=== PATIENT | female | born 1955 | race Caucasian/White ===

== ENCOUNTER 2023-07-29 15:02 | Emergency (ER) | payer OTHER, SELFPAY ==
[2023-07-29 15:07] VITALS: BP 157/107
[2023-07-29 16:40] VITALS: BP 153/94
[2023-07-29 16:56] LABS: % Basophils 0.5 % (0-2); % Eosinophils 2.3 % (0-6); % Immature Granulocytes 0.3 % (0-0.5); % Monocytes 8.2 % (1.7-9.3); % Neutrophils 55.7 % (42.2-75.2); Absolute Eosinophils 0.2 10^3/uL (0-0.7); Absolute Lymphocytes 2.5 10^3/uL (1.2-3.4); Absolute Monocytes 0.6 10^3/uL (0.1-0.6); Absolute Neutrophils 4.1 10^3/uL (1.4-6.5); Hematocrit 39.1 % (37.0-47.0); Hemoglobin 13.5 g/dL (12.0-16.0); Mean Corp Hgb Conc. 34.5 g/dL (33.0-37.0); Mean Corpuscular Hgb 30.8 pg (27.0-31.0); Mean Corpuscular Volume 89.1 fL (81.0-99.0); Mean Platelet Volume 9.3 fL (7.4-10.4); Nucleated Red Blood Cells % 0 %; Platelet Count 231 10^3/uL (130-400); Red Blood Cell Count 4.39 10^6/uL (4.20-5.40); Red Cell Dist. Width 13.5 % (11.5-14.5); White Blood Cell Count 7.4 10^3/uL (4.8-10.8)
[2023-07-29 17:00] VITALS: BP 145/73
[2023-07-29 17:08] LABS: ALT (SGPT) 17 U/L (0-35); AST (SGOT) 23 U/L (14-36); Albumin 4.1 g/dl (3.5-5.0); Alkaline Phosphatase 100 U/L (38-126); Blood Urea Nitrogen 19 mg/dl (7-17); Calcium 9.2 mg/dl (8.4-10.2); Carbon Dioxide 28 mmol/L (22-30); Chloride 102 mmol/L (98-107); Glucose 98 mg/dl (70-99); Potassium 4.8 mmol/L (3.5-5.1); Sodium 138 mmol/L (135-145); Total Bilirubin 0.4 mg/dl (0.2-1.3); Total Protein 6.9 g/dl (6.3-8.2); eGFR > 60.00
[2023-07-29 17:19] LABS: Troponin I < 0.012 ng/ml
--- NOTE | 2023-07-29 17:36 | ED.GENMED ---
History of Present Illness
General
Chief Complaint: Fatigue
Source: patient
Exam Limitations: none
Time Seen by Provider: 07/29/23 16:51
Travel History
Have you had any contact with someone who has COVID-19?: No
Do you have any symptoms of coronavirus? Fever > 100 degrees, chills, cough, shortness of breath, sore throat, loss of taste or smell, muscle aches, or headache?: No
History of Present Illness
History of Present Illness:
Patient is 68-year-old female presents with weird symptoms of feeling sad internally with throat tightness nausea and epigastric discomfort. This started earlier this morning associated with fatigue as well. Symptoms persisted throughout the day.
She states at the time my exam she has nearly resolved symptom
Past History
Past History
ED Past Medical History: None
ED Past Surgical History: None
Social History
Tobacco: Non-smoker
Alcohol: None
Drug: None
Living: with family
Phy Exam
Physical Exam
Physical Exam:
General: Well-appearing female no acute respiratory distress
HEENT: Normocephalic atraumatic
Heart: Regular rate and rhythm no murmurs
Lungs: Clear no wheeze or rales
Abdomen soft nontender nondistended no guarding rebound normal bowel sounds
Ext: no cyanosis
Course
Orders/Labs/Results
Orders:
Orders
07/29/23
Electrocardiogram (*1) Stat
Comment: DONE EMR
07/29/23 15:11
Electrocardiogram (*1) Urgent
Reason for Study: Other
Other Reason for Exam: weakness, fatigue
07/29/23 15:12
EKG- Treatment ONCE
07/29/23 16:47
Complete Blood Count/With Diff Urgent
Comprehensive Metabolic Panel Urgent
Troponin I Urgent
07/29/23 18:22
Troponin I Urgent
Abnormal Lab Results
07/29/23
16:47
BUN 19 H mg/dl
(7-17)
07/29/23 16:47
07/29/23 16:47
Vital Signs
Initial and Last Documented VS:
Initial Vital Signs
Temp Pulse Resp BP Pulse Ox
98.4 F 86 18 157/107 96
07/29/23 15:07 07/29/23 15:07 07/29/23 15:07 07/29/23 15:07 07/29/23 15:07
Last Documented Vital Signs
Temp Pulse Resp BP Pulse Ox
98.4 F 64 19 135/96 94
07/29/23 15:07 07/29/23 19:00 07/29/23 19:00 07/29/23 19:00 07/29/23 18:30
MDM/Problems Addressed
Differential Diagnosis Includes:
Throat discomfort epigastric discomfort fatigue. Consider viral illness versus cardiac related pathology. Symptoms are resolved do not suspect dissection or PE
*Critical Care Note
Total Time (30-74mins, 75-104mins- exclusive of procedures): Not Applicable
Update Note
Update Note:
Initial and repeat troponins both undetectable. Patient has no symptoms. Etiology of patient's symptoms somewhat unclear patient did have throat tightness and feeling of anxiety. Question cardiac related symptoms versus anxiety. Stable for
discharge cardiac follow up.
ED Attending Note
-
Portions of this chart may have been created with voice recognition software.� Occasional wrong word or��sound alike� substitutions may have occurred due to the inherent limitations of voice recognition software.
Discharge Plan
Departure
Patient Disposition: Home (Routine Discharge)
Date of Disposition: 07/29/23
Time of Disposition: 19:42
Patient with high blood pressure during this ER visit?: No
Discharge Problem:
Fatigue
Instructions: Chest Pain CBC Follow Up
Prescriptions:
No Action
escitalopram oxalate 10 MG tablet
10 mg PO DAILY
Referrals:
Shona Randolph MD [Family Provider] -
Activity Restrictions/Additional Instructions:
Please return if worsening symptoms otherwise follow-up with your family doctor and/or cardiology.
Interventions
Interventions:
*Risk Screen - Suicide Last Done: 07/29/23 15:07
*General Assessment Last Done: 07/29/23 15:07
*Neglect/Abuse Screening Last Done: 07/29/23 15:07
ED- Fall Risk Assessment Last Done: 07/29/23 18:32
*ED COVID-19 Vaccine History Last Done: 07/29/23 18:32
*Nursing Disposition Last Done: 07/29/23 19:47
Discharge Date and Time
Discharge Date/Time: 07/29/23 19:47
Print Language: KISWAHILI
[2023-07-29 18:00] VITALS: BP 146/83
[2023-07-29 18:59] LABS: Troponin I < 0.012 ng/ml
[2023-07-29 19:00] VITALS: BP 135/96
== END 2023-07-29 19:47 | disposition home or self-care (01) ==
LOC: EMR 15:02
PROVIDERS: Physician Assistant; EMERGENCY PHYSICIAN Emergency Medicine; FAMILY PHYSICIAN Family Medicine
DX: R53.83 Other fatigue (principal)
CPT/HCPCS: 99284; 80053; 84484; 85025; 93005

== ENCOUNTER → 2023-08-16 14:09 | Outpatient (REF) | payer OTHER, SELFPAY | LOC: RCS 14:09 | PROVIDERS: ATTENDING PHYSICIAN Internal Medicine Cardiovascular Disease; FAMILY PHYSICIAN Family Medicine | DX: R07.0 Pain in throat (principal); E78.2 Mixed hyperlipidemia | CPT/HCPCS: 93017; 93350 ==

== ENCOUNTER → 2023-09-03 13:41 | Outpatient (REF) | payer OTHER, SELFPAY | LOC: RCS 13:41 | PROVIDERS: ATTENDING PHYSICIAN Internal Medicine Cardiovascular Disease; FAMILY PHYSICIAN Family Medicine | DX: R07.0 Pain in throat (principal); E78.2 Mixed hyperlipidemia | CPT/HCPCS: 93306 ==

== ENCOUNTER → 2023-09-20 11:42 | Outpatient (REF) | payer OTHER, SELFPAY | LOC: RAD 11:42 | PROVIDERS: ATTENDING PHYSICIAN Physician Assistant | DX: M25.561 Pain in right knee (principal); T14.90XA Injury, unspecified, initial encounter; M79.604 Pain in right leg; M79.89 Other specified soft tissue disorders | CPT/HCPCS: 73564; 73590; 93971 ==

== ENCOUNTER → 2023-10-08 14:51 | Outpatient (REF) | payer OTHER, SELFPAY | LOC: WDC 14:51 | PROVIDERS: ATTENDING PHYSICIAN Family Medicine; FAMILY PHYSICIAN Family Medicine | DX: R22.1 Localized swelling, mass and lump, neck (principal); Z12.31 Encounter for screening mammogram for malignant neoplasm of breast | CPT/HCPCS: 76536; 77063; 77067 ==

== ENCOUNTER → 2023-11-29 17:16 | Outpatient (REF) | payer OTHER, SELFPAY | LOC: RAD 17:16 | PROVIDERS: ATTENDING PHYSICIAN Physician Assistant | DX: N95.0 Postmenopausal bleeding (principal) | CPT/HCPCS: 76830 ==

== ENCOUNTER 2024-02-18 06:13 | Day surgery (SDC) | payer OTHER, SELFPAY ==
[2024-02-12 12:17] VITALS: BMI 39.1
--- NOTE | 2024-02-17 22:39 | W.CON.GYNONC ---
Chief Complaint
-
endometrial cancer
History of Present Illness
68�year�old�white�female�G3�P2�0�1�2�menopausal�since�age�53�who�started�spotting�in�late�summer.�Her�family�physician�ordered
an�ultrasound�which�showed�thickening�of�the�endometrial�lining.�Ultrasound�done�at[facility]�shows�uterus�retroverted,
7.3�cm,�there�is�a�cyst�in�central�uterus�measuring�2.6�cm,�evaluation�of�endometrium�is�difficult�but�appears�to�measure�about�15
mm�right�ovary�is�1.4�cm,�left�ovary�is�not�identified�she�was�seen�and�evaluated�by�Dr.�Angela�and�gynecology.�[facility] recommended�to�undergo�D&C�for�evaluation.�Procedure�was�performed�November�,�pathology�shows�endometrial
carcinoma,�additional�workup�includes�ER�positive�at�80%�p16�positive,�there�is�diffuse�positivity�for�p53�and�therefore�classified�as
a�serous�carcinoma.�Mismatch�repair�proteins�are�intact�tumor�is�probably�MMR�proficient.�HER2�staining�was�done�which�was negative.
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
Past�surgical�history�significant�for�resection�of�lipoma�from�right�chest�wall,�exploratory�laparotomy�for�removal�of�perforated�IUD
Social�history,�patient�is�retired,�has�worked�as�a�entry level paralegal.�She�is�,�denies�tobacco�use,�drinks�alcohol�socially�a�few times�a�year,�denies�any�drug�or�marijuana�use,� Family�history�noncontributory
Screening�tests�she�has�never�had�a�colonoscopy�but�does�use�Cologuard,�she�gets�mammograms�regularly
Social�History Patient�denies�ever�using�tobacco. Marital�Status:�Patient�is�/.�with�2�child/children. Gynecological�History
Age�at�Menarche�13�years.�Age�at�menopause:�53�years.�Patient�reports�3�pregnancies.�Her�age�at�first�full�term��was�37 years. Family�Medical�History Mother��Breast�cancer� Father��prostate� Grandmother��Uterine
Medical History
Allergies
Allergies reflect when allergies were last updated in [facility].
ciprofloxacin [From Cipro] Allergy (Verified 02/11/24 10:15)
Tongue Blisters/Gastritis
Quinolones Allergy (Verified 02/11/24 10:15)
Tongue Blisters/Gastritis
Physical Exam
Physical Exam
Physical�Exam Pelvic�Examination: External�normal�labia,�urethra,�anus.� Vagina:�Normal�mucosa.� Cervix:�normal�appearance,�no�discharge.� Uterus:�normal�size.� Adnexa:�No�pelvic�mass.� RVE:�no�masses�or�nodularity
General:�Well�developed,�well�nourished�patient.�In�no�acute�distress. Neck:�No�thyromegaly.�No�cervical�lymphadenopathy. Lungs:�Clear�to�auscultation.�Good�air�movement�bilaterally. Cardiac:�Regular�rate.�Regular�rhythm.�No�murmurs�appreciated.
Right�Breast:�No�masses�or�dimpling.�No�nipple�discharge. Left�Breast:�No�masses�or�dimpling.�No�nipple�discharge. Abdomen:�Abdomen�is�soft.�Non�tender�to�palpation.�Non�distended. Extremities:�No�edema.
Hematologic/Lymphatic:�No�palpable�lymphadenopathy. Musculoskeletal:�Normal�range�of�motion.�Strength�and�Tone�are�normal. Skin:Non�jaundiced.�No�petechia.�No�purpura. Neurologic:�Speech�is�fluent.�Normal�gait�and�station.�Cranial�nerves�intact.
Results
-
�[facility]��
����������������������������������[facility]��[id number]��
��
Patient:�CATHY HUFFMAN#:�[id number]�����
����������������
:�1955����������������Age:�68���������Sex:�F������������������Visit�Number:�[id number]�����
���������������
Admit�Date:�02/14/24��������������������������������������������������������Patient�Phone:�[phone]��
[phone]�������������������
Adm�Doctor:�Justice Lockwood��������������������������������������������������������Ordered�By:�Fabián��
Justice������������������
[facility]��[id number]���������������
�����
Study�#:�[id number]��
��
Category:�[employer]��������������������������������������������������������Date�of�Service:�02/14/24���
�����������������
Study�Performed:�CT�chest�abd�pelvis�w�IV�con���������������������������������������������������������
����������������������������
��
����������������������������������������REPORT�STATUS:�Signed��
CT�OF�THE�CHEST,�ABDOMEN�AND�PELVIS�WITH�CONTRAST��
��
CLINICAL�INFORMATION:��History�of�endometrial�carcinoma��
��
PROCEDURE:�CT�examination�of�the�chest,�abdomen�and�pelvis�was�performed�after�administration�of�
intravenous�contrast.�Enteric�contrast�was�administered.��
��
INTRAVENOUS�CONTRAST:�100�mL�of�Omnipaque�350���
��
COMPARISON:�None���
MIPS�#360:�This�patient�has�had�0�prior�CTs�and�0�nuclear�medicine�cardiac�studies�at�[facility]�over�the�
past�year.��
��
FINDINGS:��
��
LUNGS,�PLEURA:�No�pleural�effusion.�The�central�airways�are�patent.�Minimal�scarring�inferior�
lingula.�No�acute�airspace�opacity.��
No�pulmonary�nodules.��
��
CARDIOVASCULAR,�MEDIASTINUM,�THYROID:�The�heart�is�normal�in�size.�No�pericardial�effusion.�4.1�cm�
dilatation�of�the�ascending�aorta.�No�significant�dilatation�of�the�esophagus.�Thyroid�lobes�are�
unremarkable.��
��
LYMPH�NODES:�No�thoracic�lymphadenopathy,�by�imaging�criteria.���
��
CHEST�WALL:�No�aggressive�osseous�lesion.��
��
LIVER:�Normal�in�size�and�configuration.�7�mm�cyst�in�the�lateral�segment�left�lobe.��
������
BILE�DUCTS:�No�intrahepatic�or�extrahepatic�bile�duct�dilation.��
��
GALLBLADDER:�No�calcified�gallstones.�Normal�wall�thickness.��
��
PANCREAS:�10�mm�hypodense�focus�medial�aspect�of�the�head�of�the�pancreas,�probable�cyst.�No�
pancreatic�duct�dilatation.��
��
SPLEEN:�Normal�size.�No�focal�splenic�lesion.��
��
ADRENAL�GLANDS:�Within�normal�limits.��
��
KIDNEYS/URETERS:�No�hydroureteronephrosis.�No�suspect�renal�mass.��
��
URINARY�BLADDER:�Within�normal�limits.��
��
REPRODUCTIVE�ORGANS:�The�uterus�demonstrates�some�low�attenuation�in�the�upper�endometrial�canal,�
incompletely�characterized�but�could�be�related�to�patient's�known�underlying�neoplasm.�No�adnexal�
mass.���
��
BOWEL:�No�bowel�dilatation.�No�adjacent�inflammatory�change.�There�is�diverticulosis�without�imaging
evidence�of�acute�diverticulitis.�The�appendix�is�normal.��
��
PERITONEUM/RETROPERITONEUM:�No�fluid�collection,�ascites,�or�pneumoperitoneum.���
��
LYMPH�NODES:�No�abdominal�or�pelvic�lymphadenopathy,�by�imaging�size�criteria.���
��
VESSELS:�No�abdominal�aortic�aneurysm�[[id number]].��
��
ABDOMINAL/PELVIC�WALL:�Within�limits�of�normal.��
��
LUMBAR�SPINE/PELVIC�BONES:�No�aggressive�osseous�lesion.��
��
��
IMPRESSION:��
��
��
1.�No�findings�to�suggest�metastatic�disease�within�the�chest.��
2.�10�mm�lesion�of�the�head�of�the�pancreas�that�appears�cystic.�Possible�IPMN.�This�can�be�followed
�with�MRCP.��
3.�Small�amount�of�fluid�in�the�upper�endometrial�canal�which�may�be�related�to�patient's�
significant�history�of�endometrial�carcinoma.��
4.�Otherwise�no�findings�to�suggest�metastatic�disease�in�the�abdomen�and�pelvis.��
��
��
��
Dictated�By:�Leonard�02/15/24�
Impression / Plan
-
This�patient�has�a�new�diagnosis�of�endometrial�cancer,�I�reviewed�with�her�presentation�incidence�as�well�as�workup�and management�of�endometrial�cancer�with�her.�Preliminary�evaluation�suggest�that�patient�has�a�p53�mutated�serous�carcinoma.�We
discussed�specific�issues�related�to�serous�carcinoma�including�high�risk�of�metastatic�disease�at�presentation�and�typical requirement�for�postoperative�adjuvant�treatment�even�for�early�stage�disease.�My�recommendations�are�as�follows
#1�Labs�including�CMP�CBC�CA125�TSH�coagulation�studies�will�be�done�preoperatively #2�a�baseline�CT�chest�abdomen�and�pelvis�will�be�obtained�for�evaluation�of�metastatic�disease�and�primary�staging
#3�we�discussed�that�she�needs�clearance�from�primary�care�physician�for�upcoming�surgery�i.e.�hysterectomy #4�plan�of�surgery�is�to�perform�robotic�assisted�total�laparoscopic�hysterectomy,�bilateral�salpingo�oophorectomy,�staging�including
injection�of�cervix�with�ICG�dye�and�removal�of�sentinel�lymph�nodes,�peritoneal�washings,�biopsies�as�well�as�omentectomy.�Risks
of�surgery�including�infection�bleeding�injury�to�adjacent�organs�DVT�pulmonary�embolism�and�cardiovascular�complications�were discussed�and�reviewed. #5�surgery�will�be�scheduled�probably�within�the�next�2�to�3�weeks�at[facility].
#6�the�visit�will�be�scheduled�2�to�3�weeks�after�surgery�to�discuss�pathology�results�and�management�postoperatively.�She
understands�that�there�is�a�high�likelihood�of�requirement�for�systemic�chemotherapy�plus�minus�radiation.�All�her�questions�were answered�informed�consent�will�be�obtained�today
#7�patient�has�significant�concerns�about�insurance�issues�in�the�coming�year,�we�will�make�arrangement�for�her�to�meet�with social�work�to�assist�in�ensuring�that
[2024-02-18] VITALS (12 sets, daily range): BP systolic 130–158; BP diastolic 78–94; BMI 39.1
[2024-02-18] MEDS: CELEBREX 200 MG PO (06:39)
[2024-02-18] MEDS: TYLENOL 1000 MG PO (06:39)
[2024-02-18] MEDS: NEURONTIN 300 MG PO (06:39)
[2024-02-18] MEDS: NORMOSOL-R/PLASMALYTE-A 1000 IV (06:40)
[2024-02-18] MEDS: HEPARIN 5000 UNITS SC (06:40)
--- NOTE | 2024-02-18 09:01 | OR.RPT ---
Operative Report
Operative Report
Date of procedure: February 18, 2024
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
Postop diagnosis: Same
Procedure:
Robotic assisted tumor cytoreductive surgery including laparoscopic total hysterectomy, bilateral salpingo-oophorectomy, omentectomy, pelvic washings
Robotic assisted laparoscopic bilateral pelvic sentinel lymphadenectomy
Injection of cervix with ICG dye bilateral for mapping and identification of bilateral sentinel lymph nodes
TAP block
Surgeon: Rigo Lockwood
Assist:Kelsey Rdz PA-C and DENISHA Ramirezhe assistance of Kelsey and Nestor was required due to the complexity of the procedure. During the procedure both assisted with retraction, resection, and closure of the wound.
Anesthesia tracheal intubation
Complication: None
Estimated blood loss: 50 cc
Urine output: 200 cc
Specimen: Uterus and cervix with bilateral tubes and ovaries, pelvic washings, omentum, right external iliac sentinel lymph node, right obturator sentinel lymph node, left external iliac sentinel lymph node, additional left pelvic lymph nodes
Procedure in detail: This patient was brought to the operating room for definitive management of recently diagnosed high-grade endometrial cancer. Upon arrival to the operating room she was placed in supine position she was placed under general
anesthesia and intubated without any difficulty appropriate IVs were obtained. She was placed in lithotomy position using yellowfin stirrups, both arms were wrapped in foam and placed along the patient's side and all joints were properly examined
and padded to prevent any injury. Next timeout procedure was carried out she received Ancef and Flagyl for prophylaxis and had received DVT prophylaxis with heparin 5000 units subcutaneous injection. She was prepped on the abdomen perineum and
vagina. Bird catheter was inserted under sterile conditions in the bladder. Uterine cervix was grasped with single-tooth tenaculum and cervix was injected at 3 and 9:00 at 5 and 10 mm stations with a total of 5 cc ICG dye bilaterally. Once this
was completed the cervical canal was dilated, uterine manipulator flexible nanny type with 3.0 cm ring was placed around the cervix. Vaginal cuff occluder was insufflated. We turned our attention to the abdomen, Veress needle was inserted just below
the left subcostal margin. Insufflation with CO2 gas was performed up to pressure of 15 mmHg. 8 mm X Xi robotic port was inserted 25 cm cephalad to symphysis pubis. Additional 8 mm X Xi robotic ports were inserted in the right upper quadrant left
upper quadrant right and left lateral abdomen. Visualization of the upper abdomen reveals bilateral lobes of the liver diaphragm spleen stomach and falciform ligament to be within normal limits. Tap block was performed with a combination of
ropivacaine and Decadron injected 2 fingerbreadths below the level of right and left subcostal margins laterally above the peritoneum at the level of the muscle under direct visualization as well as right and left mid lateral abdomen. Patient was
placed at 28 degree Trendelenburg, robotic system was docked. Washings were collected. Right and left round ligaments were sealed and divided anterior and posterior leaves of the broad ligament were dissected open. Both infundibulopelvic
ligaments were isolated and sealed 3 times and divided tubes and ovaries were left attached to the uterus paravesical and pararectal spaces were developed. Using firefly system we identified a palpable and suspicious node in the mid left external
iliac region. There were additional concern about lymph node and the additional lymph nodes were removed along the external iliac artery as well as external iliac vein and obturator fossa. There were no peritoneal implants in the pelvis. On the
right side the mapping identified to lymph nodes and proximal external iliac region as well as obturator fossa these were removed and submitted to pathology. Bladder flap was sharply developed and advanced below the cervicovaginal junction.
Uterine arteries were sealed and divided bilaterally. Circumferential incision was made around the cervix until the specimen was completely detached uterus and cervix and bilateral tubes and ovaries were removed from the vagina and submitted to
pathology. Omentum was brought up and infracolic omentectomy was performed using vessel sealer ligating series of omental vessels and omental fat. During this process it was noted that there was a 2 cm mass attached to the omentum it is unclear
whether this is due to old inflammatory changes as the patient has had an exploratory laparotomy and removal of perforated IUD in the past or whether it is malignant in nature. There were no additional implants on the omentum. The omentum was also
brought out through the vagina and submitted to pathology. We then closed the vagina by using 0 Vicryl suture ligature in a [id number] fashion at both apices. A V-Loc suture was used to close the cuff in a bidirectional fashion incorporating
uterosacral ligaments. We irrigated the pelvis copiously all major pedicles were examined and hemostasis was assured. All instruments were removed and pneumoperitoneum was released and the skin incisions were closed after removal of all ports with
4-0 Monocryl in a subcuticular fashion. Bird catheter was removed vagina was examined and there was no lacerations. Patient was awakened extubated and returned back to recovery room stable awake and extubated condition. Counts of laps
instruments and needle was correct x 2. I was present and scrubbed for entire procedure as dictated above.
Disposition: To PACU, extubated alert awake
[2024-02-18] MEDS: ZOFRAN 4 MG IV (09:40)
[2024-02-18] MEDS: TYLENOL 650 MG PO (13:29)
== END 2024-02-18 13:40 | disposition home or self-care (01) ==
LOC: SDS 06:13
PROVIDERS: ATTENDING PHYSICIAN Obstetrics & Gynecology Gynecologic Oncology; FAMILY PHYSICIAN Family Medicine
DX: C54.1 Malignant neoplasm of endometrium (principal); C77.5 Secondary and unspecified malignant neoplasm of intrapelvic lymph nodes
CPT/HCPCS: 58571; 38570; 88307; 88309; 88311; 36415; 86850; 86900; 86901; 88112; 88341; 88342; 88360